=== PATIENT | female | born 1980 | race Hispanic/Latino ===

== ENCOUNTER 2024-05-05 13:25 | Emergency (ER) | payer BC ==
[~2024-05-05] VITALS: Ht 154.9 cm; Wt 74.8 kg
[2024-05-05 13:48] VITALS: PULSE 83; RESP 15; TEMP 98.4; O2SAT 100
[2024-05-05] MEDS ORDERED: DEXAMETHASONE4 MG PO (14:04)
[2024-05-05] MEDS ORDERED: NAPROXEN250 MG PO (14:05)
== END 2024-05-05 14:18 | disposition home or self-care (01) ==
LOC: ER 13:28
DX: G62.9 Polyneuropathy, unspecified (principal)
CPT/HCPCS: 99283